=== PATIENT | female | born 1965 | race African-American/Black ===

== ENCOUNTER → 2020-05-31 | Outpatient (CLI) | payer OTHER ==
[2014-11-14 19:50] VITALS: BP 159/85
[~2020-05-31] MED LIST: ALPR0.5T6 PO; CIPR500T94 PO; HYDR-2155 PO; HYDR1TAB10 PO; LABE100T5 PO; METO10TA81 PO; METR500T PO; PANT40TA3 PO
[2020-05-31 13:15] LABS: ALBUMIN 3.6 g/dL (3.4-5.0); ALBUMIN/GLOBULIN RATIO 0.9 (1.0-1.7); CALCIUM 9.2 mg/dL (8.5-10.1); CREATININE 1.1 mg/dL (0.6-1.0); GFR 62.4; TOTAL BILIRUBIN 0.2 mg/dL (0.2-1.0); TOTAL PROTEIN 7.6 g/dL (6.4-8.2)
[2020-05-31 13:44] LABS: BASO % 0 % (0-3); EOS # 0.3 x10^3/uL (0.0-0.7); EOS % 3 % (0-3); HEMATOCRIT 36.7 % (36.0-47.0); LYMPH # 2.2 x10^3/uL (1.0-4.8); LYMPH % 27 % (24-48); MEAN CORPUSCULAR HEMOGLOBIN 29 pg (25-35); MEAN CORPUSCULAR HGB CONC 33 g/dL (31-37); MEAN CORPUSCULAR VOLUME 89 fL (79-100); MONO # 0.7 x10^3/uL (0.0-1.1); MONO % 8 % (0-9); NEUT # 5.2 x10^3uL (1.8-7.7); NEUT % 62 % (31-73); PLATELET COUNT 253 x10^3/uL (140-400); RED BLOOD COUNT 4.12 x10^6/uL (3.50-5.40); RED CELL DISTRIBUTION WIDTH 15.9 % (11.5-14.5); WHITE BLOOD COUNT 8.4 x10^3/uL (4.0-11.0)
[2020-05-31 14:04] LABS: BACTERIA,URINE MANY /HPF (0-FEW); BILIRUBIN,URINE NEG (NEG); CLARITY,URINE HAZY; COLOR,URINE YELLOW; GLUCOSE,URINE NEG (NEG); NITRITE,URINE NEG (NEG); SQUAMOUS EPITHELIAL CELL,UR MANY /LPF; UROBILINOGEN,URINE 0.2 mg/dL (0.2 mg/dL)
[2020-06-01 19:21] LABS: FREE T4 0.92 ng/dL (0.76-1.46); THYROID STIM HORMONE (TSH) 0.793 uIU/mL (0.358-3.740)
== END ==
LOC: LAB 12:06
PROVIDERS: ATTEND Family Medicine
DX: E03.9 Hypothyroidism, unspecified (principal); R35.1 Nocturia; R19.01 Right upper quadrant abdominal swelling, mass and lump; R09.02 Hypoxemia
CPT/HCPCS: 36415; 80053; 81001; 83690; 84439; 84443; 85025; 85379; 87086

== ENCOUNTER → 2020-06-16 | Outpatient (CLI) | payer OTHER ==
[2014-11-14 19:50] VITALS: BP 159/85
[~2020-06-16] MED LIST changes: +IOHEXOL 240 MG/ML 50ML VIAL. ONE; +IOHEXOL 240 MG/ML 50ML VIAL. PO ONE; +IOHEXOL 300 MG/ML 75 ML VIAL. IV ONE
--- NOTE | 2020-06-16 16:28 | RAD ---
CT scan of the abdomen and pelvis without and with contrast 06/16/2020 CLINICAL HISTORY: Right upper quadrant abdominal pain and swelling. TECHNIQUE: After the oral administration contrast only, contiguous, 3 mm axial sections were obtained through the abdomen and pelvis. After the intravenous administration of 75 cc of Omnipaque 300, cont iguous, 5 mm axial sections were obtained through the abdomen and pelvis. One or more of the following individualized dose reduction techniques were utilized for this study: 1. Automated exposure control. 2. Adjustment of the mA and/or kV according to patient size. 3. Use of iterative reconstruction technique. Findings: Comparison study is dated 08/25/2011. Images through the lung bases demonstrate minimal dependent subsegmental atelectasis bilaterally. On the unenhanced CT images through the abdomen and pelvis, no renal or ureteral calculus is seen. On the postcontrast images, the liver, spleen, pancreas, and kidneys are within normal limits. Fullne ss of both adrenal glands is seen, unchanged. Atherosclerotic calcification of the abdominal aorta and its branches is noted. The abdominal aorta t apers normally. Surgical clips are seen within the gallbladder fossa consistent with cholecystectomy. No free fluid or free air is seen within the abdomen. Air and stool are seen throughout the colon. T he appendix is well-visualized and is within normal limits. There is no evidence of bowel obstruction . Images through the pelvis demonstrate the urinary bladder to be contracted. A few scattered diverticu la are seen involving the sigmoid colon. No inflammatory changes are seen adjacent fat. No free fluid is seen. Calculations are seen within the pelvis consistent with phleboliths. Very mild S-shaped cur vature of the thoracolumbar spine is seen. Degenerative changes are seen involving lower thoracic and throughout the lumbar spine along with both hips. IMPRESSION: No acute abnormality is seen. Electronically signed by: Pablo Craven MD (06/16/2020 4:26 PM) [id number]
== END ==
LOC: CT 11:51
PROVIDERS: ATTEND Family Medicine
DX: K57.30 Diverticulosis of large intestine without perforation or abscess without bleeding (principal); I70.0 Atherosclerosis of aorta; M47.815 Spondylosis without myelopathy or radiculopathy, thoracolumbar region; M43.8X5 Other specified deforming dorsopathies, thoracolumbar region; R19.01 Right upper quadrant abdominal swelling, mass and lump; Z98.890 Other specified postprocedural states
CPT/HCPCS: 74178; Q9966; Q9967

== ENCOUNTER → 2020-07-21 | Outpatient (CLI) | payer OTHER ==
[2014-11-14 19:50] VITALS: BP 159/85
[~2020-07-21] MED LIST changes: -IOHEXOL 240 MG/ML 50ML VIAL. ONE; -IOHEXOL 240 MG/ML 50ML VIAL. PO ONE; -IOHEXOL 300 MG/ML 75 ML VIAL. IV ONE
--- NOTE | 2020-07-22 08:41 | RAD ---
XR ORBITS COMPLETE 4+ VIEWS History: Reason: TRAUMA TO RIGHT EYE / Spl. Instructions: / History: Pain Technique: 5 views of the orbits Comparison: None. Findings: Normal alignment. No definite fracture. No radiopaque foreign body. Impression: 1. No definite acute osseous abnormality. If persistent clinical concern, CT can better evaluate. Electronically signed by: Austyn Ulloa DO (07/22/2020 8:38 AM) [id number]
== END ==
LOC: RAD 12:16
PROVIDERS: ATTEND Registered Nurse
DX: S05.11XD Contusion of eyeball and orbital tissues, right eye, subsequent encounter (principal); X58.XXXD Exposure to other specified factors, subsequent encounter
CPT/HCPCS: 70200

== ENCOUNTER → 2020-07-21 | Outpatient (CLI) | payer OTHER ==
[2014-11-14 19:50] VITALS: BP 159/85
--- NOTE | 2020-07-21 15:20 | RAD ---
EXAM: NUCLEAR GASTRIC EMPTYING SCAN. HISTORY: Gastroparesis. COMPARISON: None. TECHNIQUE: Serial static images were obtained over the stomach following oral administration of 2 mCi of 99m-Tc sulfur colloid in a solid meal. FINDINGS: The stomach appears normal in contour. There is clearance of activity into the small bowel. The remaining fraction of gastric activity is as follows. 1 hour 71% (normal range 34.8-91%) 2 hour 47% (normal range 2.7-60%) 3 hour 3% (normal range 0.5-28%) 4 hour 1% (normal range 0-10%) IMPRESSION: 1. Normal gastric emptying. Electronically signed by: Chris Poole MD (07/21/2020 3:17 PM) [facility]
== END ==
LOC: NM 08:11
PROVIDERS: ATTEND Internal Medicine Gastroenterology
DX: K31.84 Gastroparesis (principal)
CPT/HCPCS: 78264; A9541

== ENCOUNTER 2020-12-10 07:57 | Emergency (ER) | payer OTHER ==
[~2020-12-10] VITALS: Ht 160 cm; Wt 115.0 kg
--- NOTE | 2020-12-10 08:26 | PHYS DOC ---
Past History Past Medical History: Angina, Asthma, Hypertension, Other Additional Past Medical Histor: gastroparesis, narcolepsy, chronic back pain Past Surgical History: Cholecystectomy, , Other Additional Past Surgical Histo: pt reports "5 lb tumor removed." Smoking: Cigarettes Alcohol Use: Occasionally Drug Use: None General Adult EDM: Chief Complaint: ABDOMINAL PAIN HPI: HPI: 55-year-old female presents with right upper quadrant pain. The patient has been having intermittent pain in this area for several years. She moves her right arm a certain way and she gets a severe cramping pain up under her right breast. The only thing that makes it better is to put pressure on that area. She has discussed it with her primary care physician and no one has been able to come up with a reason for it. Patient is very concerned about it being a cancerous tumor. She does not have a particular reason for that she is just worried about it. She denies fever or chills. She does not have any nausea, vomiting, diarrhea or constipation. She presents today because she has been having pain frequently for the last 2 days in this area. Review of Systems: Review of Systems: Constitutional: Denies fever or chills Eyes: Denies change in visual acuity HENT: Denies nasal congestion or sore throat Respiratory: Denies cough or shortness of breath Cardiovascular: Denies chest pain or edema GI: Right upper quadrant abdominal pain. Denies nausea, vomiting, bloody stools or diarrhea : Denies dysuria Musculoskeletal: Denies back pain or joint pain Integument: Denies rash Neurologic: Denies headache, focal weakness or sensory changes Endocrine: Denies polyuria or polydipsia Lymphatic: Denies swollen glands Psychiatric: Denies depression or anxiety Allergies: Allergies: Allergies Coded Allergies Type Severity Reaction Last Updated Verified No Known Drug Allergies 12/10/20 No Physical Exam: PE: Constitutional: Well developed, well nourished, morbidly obese, no acute distress, non-toxic appearance. [] HENT: Normocephalic, atraumatic, bilateral external ears normal, oropharynx moist, no oral exudates, nose normal. [] Eyes: PERRLA, EOMI, conjunctiva normal, no discharge. [] Neck: Normal range of motion, no tenderness, supple, no stridor. [] Cardiovascular: Heart rate regular rhythm, no murmur [] Lungs & Thorax: Bilateral breath sounds clear to auscultation [] Abdomen: Bowel sounds normal, soft, no tenderness, no masses, no pulsatile masses. [] Skin: Warm, dry, no erythema, no rash. [] Back: No tenderness, no CVA tenderness. [] Extremities: No tenderness, no cyanosis, no clubbing, ROM intact, no edema. [] Neurologic: Alert and oriented X 3, normal motor function, normal sensory function, no focal deficits noted. [] Psychologic: Affect normal, judgement normal, mood anxious [] Current Patient Data: Vital Signs: Vital Signs Date Time Temp Pulse Resp B/P (MAP) Pulse Ox O2 Delivery O2 Flow Rate FiO2 12/10/20 08:00 98.1 97 17 148/95 98 Room Air EKG: EKG: [] Radiology/Procedures: Radiology/Procedures: [] Impressions: CT ABDOMEN+PELVIS W History: Right upper quadrant pain Comparison: CT abdomen and pelvis 06/16/2020. Technique: CT of the abdomen and pelvis with intravenous contrast. Findings: Trace right pleural effusion. No significant airspace consolidation. Redemonstrated approximately 5 mm right hepatic cyst. The liver is otherwise unremarkable. Status post cholecystectomy with mild intrahepatic biliary ductal dilatation, similar to comparison. The common bile duct measures approximately 7 mm diameter. The pancreas, spleen, and kidneys are normal. There is bilateral adrenal thickening similar to comparison. Normal bladder. Postsurgical changes from hysterectomy. No pelvic masses. No focal gastric abnormality. Small bowel is within normal limits. The appendix is visualized and normal. Minimal sigmoid diverticulosis. No evidence of diverticulitis. No free intra-abdominal air or fluid. Minimal aortoiliac atherosclerotic calcification. No aneurysm. Small fat-containing umbilical hernia. Mild degenerative changes at the lower lumbar facets. Mild disc space narrowing L3-L4. Impression: 1. No acute findings in the abdomen and pelvis. 2. Trace right pleural effusion of uncertain etiology/significance. ------ Exposure: One or more of the following individualized dose reduction techniques were utilized for this examination: 1. Automated exposure control 2. Adjustment of the mA and/or kV according to patient size 3. Use of iterative reconstruction technique. Electronically signed by: Christian Carrillo MD (12/10/2020 9:14 AM) [id number] DICTATED AND SIGNED BY: CHRISTIAN CARRILLO MD DATE: 12/10/20901 CC: BERTHA GOMEZ DO; NURIS COLLADO DO ~MTH0 0 Heart Score: C/O Chest Pain: N/A Risk Factors: Risk Factors: DM, Current or recent (<one month) smoker, HTN, HLP, family history of CAD, obesity. Risk Scores: Score 0 - 3: 2.5% MACE over next 6 weeks - Discharge Home Score 4 - 6: 20.3% MACE over next 6 weeks - Admit for Clinical Observation Score 7 - 10: 72.7% MACE over next 6 weeks - Early Invasive Strategies Course & Med Decision Making: Course & Med Decision Making Pertinent Labs and Imaging studies reviewed. (See chart for details) The patient's labs are unremarkable. Her CT of the abdomen pelvis does not show any acute findings. See official read for details. I suspect the patient may have been intermittently displacing the rib. Based on the description of the episodes and what causes the pain to happen, this is 1 potential diagnosis. Regardless, it does appear to be musculoskeletal and not intraabdominal. The patient is reassured by these results. She is stable for discharge at this time. [] Dragon Disclaimer: Dragon Disclaimer: This electronic medical record was generated, in whole or in part, using a voice recognition dictation system. Departure Departure: Impression: Primary Impression: Right upper quadrant abdominal pain Disposition: HOME / SELF CARE / HOMELESS Condition: STABLE Referrals: NURIS COLLADO DO (PCP) Patient Instructions: Abdominal Pain (Nonspecific) BERTHA GOMEZ DO Dec 10, 2020 08:26
[2020-12-10] MEDS ORDERED: IOHEXOL 300 MG/ML 75 ML VIAL. IV ONE (08:30)
[2020-12-10] MEDS ORDERED: CONTRAST GIVEN. MC PRN (08:45)
[2020-12-10 08:47] LABS: BASO % 1 % (0-3); EOS # 0.3 x10^3/uL (0.0-0.7); EOS % 5 % (0-3); HEMATOCRIT 38.7 % (36.0-47.0); HEMOGLOBIN 12.9 g/dL (12.0-15.5); LYMPH # 1.7 x10^3/uL (1.0-4.8); LYMPH % 24 % (24-48); MEAN CORPUSCULAR HEMOGLOBIN 30 pg (25-35); MEAN CORPUSCULAR HGB CONC 33 g/dL (31-37); MEAN CORPUSCULAR VOLUME 90 fL (79-100); MONO # 0.4 x10^3/uL (0.0-1.1); MONO % 6 % (0-9); NEUT # 4.4 x10^3uL (1.8-7.7); NEUT % 64 % (31-73); PLATELET COUNT 238 x10^3/uL (140-400); RED BLOOD COUNT 4.29 x10^6/uL (3.50-5.40); RED CELL DISTRIBUTION WIDTH 15.1 % (11.5-14.5); WHITE BLOOD COUNT 6.9 x10^3/uL (4.0-11.0)
[2020-12-10 08:53] LABS: CALCIUM 8.9 mg/dL (8.5-10.1); GFR 69.7; POTASSIUM 3.6 mmol/L (3.5-5.1)
[2020-12-10 09:01] LABS: ALBUMIN 3.6 g/dL (3.4-5.0); ALBUMIN/GLOBULIN RATIO 0.9 (1.0-1.7); TOTAL BILIRUBIN 0.3 mg/dL (0.2-1.0); TOTAL PROTEIN 7.4 g/dL (6.4-8.2)
--- NOTE | 2020-12-10 09:16 | RAD ---
CT ABDOMEN+PELVIS W History: Right upper quadrant pain Comparison: CT abdomen and pelvis 06/16/2020. Technique: CT of the abdomen and pelvis with intravenous contrast. Findings: Trace right pleural effusion. No significant airspace consolidation. Redemonstrated approximately 5 mm right hepatic cyst. The liver is otherwise unremarkable. Status pos t cholecystectomy with mild intrahepatic biliary ductal dilatation, similar to comparison. The common bile duct measures approximately 7 mm diameter. The pancreas, spleen, and kidneys are normal. There is bilateral adrenal thickening similar to comparison. Normal bladder. Postsurgical changes from hyst erectomy. No pelvic masses. No focal gastric abnormality. Small bowel is within normal limits. The appendix is visualized and nor mal. Minimal sigmoid diverticulosis. No evidence of diverticulitis. No free intra-abdominal air or fl uid. Minimal aortoiliac atherosclerotic calcification. No aneurysm. Small fat-containing umbilical he rnia. Mild degenerative changes at the lower lumbar facets. Mild disc space narrowing L3-L4. Impression: 1. No acute findings in the abdomen and pelvis. 2. Trace right pleural effusion of uncertain etiology/significance. ------ Exposure: One or more of the following individualized dose reduction techniques were utilized for thi s examination: 1. Automated exposure control 2. Adjustment of the mA and/or kV according to patient size 3. Use of iterative reconstruction technique. Electronically signed by: Christian Carrillo MD (12/10/2020 9:14 AM) [id number]
[2020-12-10 09:47] LABS: BILIRUBIN,URINE NEG (NEG); CLARITY,URINE CLEAR; COLOR,URINE YELLOW; GLUCOSE,URINE NEG (NEG); NITRITE,URINE NEG (NEG); UROBILINOGEN,URINE 0.2 mg/dL (0.2 mg/dL)
[2020-12-10 09:50] LABS: BACTERIA,URINE FEW /HPF (0-FEW); RBC,URINE 0 /HPF (0-2); SQUAMOUS EPITHELIAL CELL,UR FEW /LPF; WBC,URINE OCC /HPF (0-4)
[2020-12-10 10:19] VITALS: BP 128/87
== END 2020-12-10 10:16 | disposition home or self-care (01) ==
LOC: ER 07:57
DX: R10.11 Right upper quadrant pain (principal)
CPT/HCPCS: 36415; 74177; 80053; 81001; 85025; 99285; Q9967

== ENCOUNTER 2021-05-30 11:19 | Emergency (ER) | payer OTHER ==
[~2021-05-30] VITALS: Ht 160 cm; Wt 115.0 kg
[2021-05-30 11:32] VITALS: BP 138/81
[2021-05-30] MEDS ORDERED: DEXAMETHASONE SOD PHOS 10 MG/ML VIAL. IM ONE (12:00)
[2021-05-30] MEDS ORDERED: IPRATRPIUM/ALBUTEROL 0.5/2.5MG 3 ML NEBU. NEB ONE (12:00)
--- NOTE | 2021-05-30 12:14 | RAD ---
EXAM: Chest, single view. HISTORY: Shortness of breath. Wheezing. COMPARISON: None. FINDINGS: A frontal view of the chest is obtained. There is no infiltrate, pleural effusion or pneumo thorax. The heart is normal in size for portable technique. IMPRESSION: No acute pulmonary finding. Electronically signed by: Rohini Bennett MD (05/30/2021 12:12 PM) [id number]
--- NOTE | 2021-05-30 12:25 | PHYS DOC ---
Past History Past Medical History: Angina, Asthma, Hypertension, Other Additional Past Medical Histor: gastroparesis, narcolepsy, chronic back pain Past Surgical History: Cholecystectomy, , Other Additional Past Surgical Histo: pt reports "5 lb tumor removed." Smoking: Cigarettes Alcohol Use: None Drug Use: None General Adult EDM: Chief Complaint: SHORTNESS OF BREATH HPI: HPI: Patient is a 56 year old female with history of asthma who presents with increased shortness of breath and wheezing. Patient was seen in urgent care on Sunday. At that time, she was prescribed antibiotics and prednisone. She states she did not feel well enough to go medicinal plant picker her prescriptions. Patient presents today with continued shortness of breath and wheezing. She denies all other complaints. Review of Systems: Review of Systems: Constitutional: Denies fever, chills or generalized weakness Eyes: Denies change in visual acuity, visual field deficits or discharge HENT: Denies ear pain, nasal congestion or sore throat Respiratory: See HPI Cardiovascular: Denies chest pain, palpitations or edema GI: Denies abdominal pain, nausea, vomiting, bloody stools or diarrhea : Denies dysuria or hematuria Musculoskeletal: Denies back pain or joint pain Integument: Denies rash or other skin lesion Neurologic: Denies headache, focal weakness or sensory changes Current Medications: Current Meds: Current Medications Medications (Trade) Dose Ordered Sig/Kelley Start Time Stop Time Status Last Admin Dose Admin Albuterol/ Ipratropium (Duoneb) 3 ml 1X ONCE 05/30/21 12:00 05/30/21 12:06 DC 05/30/21 11:59 3 ML Dexamethasone Sodium Phosphate (Decadron) 12 mg 1X ONCE 05/30/21 12:00 05/30/21 12:06 DC 05/30/21 12:08 12 MG Allergies: Allergies: Allergies Coded Allergies Type Severity Reaction Last Updated Verified No Known Drug Allergies 12/10/20 No Physical Exam: PE: Constitutional: Obese, no acute distress, non-toxic appearance. HENT: Normocephalic, atraumatic, bilateral external ears normal, nose normal. Eyes: EOMI, conjunctiva normal, no discharge. Neck: Normal range of motion, no stridor. Cardiovascular: Heart rate regular rhythm, no obvious murmur. Lungs & Thorax: Bilateral breath sounds expiratory wheezing without rales or rhonchi. Skin: Warm, dry, no erythema, no rash, no cyanosis. Neurologic: Alert and oriented x4, no focal deficits noted. Current Patient Data: Vital Signs: Vital Signs Date Time Temp Pulse Resp B/P (MAP) Pulse Ox O2 Delivery O2 Flow Rate FiO2 05/30/21 12:01 98 Room Air 05/30/21 11:32 98.1 69 16 138/81 (100) Radiology/Procedures: Radiology/Procedures: PROCEDURE: CHEST AP ONLY EXAM: Chest, single view. HISTORY: Shortness of breath. Wheezing. COMPARISON: None. FINDINGS: A frontal view of the chest is obtained. There is no infiltrate, pleural effusion or pneumothorax. The heart is normal in size for portable technique. IMPRESSION: No acute pulmonary finding. Electronically signed by: Rohini Bennett MD (05/30/2021 12:12 PM) [id number] DICTATED AND SIGNED BY: ROHINI BENNETT MD Heart Score: C/O Chest Pain: No Course & Med Decision Making: Course & Med Decision Making Pertinent Labs and Imaging studies reviewed. (See chart for details) Patient is a 56-year-old female who with presentation consistent with asthma exacerbation. She was treated on Sunday, but did not medicinal plant picker medications. She will be treated today with IM dexamethasone and DuoNeb. Patient strongly advised to quit smoking and medicinal plant picker her prescriptions when she leaves the department today. After receiving breathing treatment, patient breath sounds improved. Negative chest x-ray findings discussed. Patient was given return precautions. She understands and is agreeable to discharge plan. Dragon Disclaimer: Dragkary Disclaimer: This electronic medical record was generated, in whole or in part, using a voice recognition dictation system. Departure Departure: Impression: Primary Impression: Asthma exacerbation, mild Disposition: HOME / SELF CARE / HOMELESS Condition: IMPROVED Referrals: NURIS COLLADO DO (PCP) Patient Instructions: Asthma Attacks, Prevention, Asthma, Adult, [id number] Additional Instructions: EMERGENCY DEPARTMENT GENERAL DISCHARGE INSTRUCTIONS Thank you for coming to [facility] (ED) today and trusting us with you care. We trust that you had a positive experience in our Emergency Department. If you wish to speak to the department management, you may call the director at [phone]. YOUR FOLLOW UP INSTRUCTIONS ARE FOLLOWS: 1. Follow up with your primary care doctor. If you do not have a primary doctor, please ask for a resource list of physicians or clinics that may be able to assist you with follow up care. 2. The emergency provider has interpreted your imaging studies, if any were ordered. The radiology intake specialist also reviewed them. If there is a change in the findings, you will be notified in 48 hours when at all possible. 3. If a lab test or culture has been done, your results will be reviewed and you will be notified if you need a change in treatment. 4. Follow instructions verbalized to you and refer to the printouts if needed. ADDITIONAL INSTRUCTIONS AND INFORMATION: 1. Your care today has been supervised by a physician who is specially trained in emergency care. Many problems require more than one evaluation for a complete diagnosis and treatment. We recommend that you schedule your follow up appointment as recommended to ensure complete treatment of you illness or injury. If you are unable to obtain follow up care and continue to have a problem, or if your condition worsens, we recommend that you return to the ED. 2. We are not able to safely determine your condition over the phone nor are we able to give sound medical advice over the phone. For these safety reasons, if you call for medical advice we will ask you to come to the ED for further evaluation. 3. If you have any questions regarding these discharge instructions please call the ED at [phone]. SAFETY INFORMATION: In the interest of safety, wellness, and injury prevention; we encourage you to wear your seat belt, if you smoke; quite smoking, and we encourage family to use a protective helmet for bicycling and other sporting events that present an increased risk for head injury. IF YOUR SYMPTOMS WORSEN OR NEW SYMPTOMS DEVELOP, OR YOU HAVE CONCERNS ABOUT YOUR CONDITION; OR IF YOUR CONDITION WORSENS WHILE YOU ARE WAITING FOR YOUR FOLLOW UP APPOINTMENT; EITHER CONTACT YOUR PRIMARY CARE DOCTOR, THE PHYSICIAN WHOSE NAME AND NUMBER YOU WERE GIVEN, OR RETURN TO THE ED IMMEDIATELY. ANDRZEJ ZAMBRANO May 30, 2021 12:25
== END 2021-05-30 12:33 | disposition home or self-care (01) ==
LOC: ER 11:19
DX: J45.901 Unspecified asthma with (acute) exacerbation (principal); I10 Essential (primary) hypertension; G89.29 Other chronic pain; F17.210 Nicotine dependence, cigarettes, uncomplicated
CPT/HCPCS: 71045; 94640; 96372; 99283; J1100

== ENCOUNTER → 2021-09-08 | Outpatient (CLI) | payer OTHER ==
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
== END ==
LOC: RAD 10:05
PROVIDERS: ATTEND Family Medicine
DX: M51.36 Other intervertebral disc degeneration, lumbar region (principal); M48.07 Spinal stenosis, lumbosacral region; M43.07 Spondylolysis, lumbosacral region
CPT/HCPCS: 72100

== ENCOUNTER 2021-09-14 08:34 | Emergency (ER) | payer OTHER ==
[~2021-09-14] VITALS: Ht 160 cm; Wt 115.0 kg
[2021-09-14] MEDS ORDERED: IPRATRPIUM/ALBUTEROL 0.5/2.5MG 3 ML NEBU. ONE (08:56)
[2021-09-14] MEDS ORDERED: methylPREDNISolone SOD SUCC PF 125 MG/2 ML VIAL. IV ONE (09:00)
[2021-09-14] MEDS ORDERED: IPRATRPIUM/ALBUTEROL 0.5/2.5MG 3 ML NEBU. NEB ONE (09:00)
--- NOTE | 2021-09-14 09:19 | PHYS DOC ---
Past History Past Medical History: Angina, Asthma, Hypertension, Other Additional Past Medical Histor: gastroparesis, narcolepsy, chronic back pain Past Surgical History: Cholecystectomy, , Other Additional Past Surgical Histo: pt reports "5 lb tumor removed." Smoking: Cigarettes Alcohol Use: None Drug Use: None General Adult EDM: Chief Complaint: SHORTNESS OF BREATH HPI: HPI: 56-year-old female presents with shortness of breath. Patient has a history of asthma. She tells me that for the last 2 to 3 weeks she has had more difficulty with her breathing. She has been on cefdinir previously, prednisone and oral treatment that she does finish yesterday, Symbicort daily, albuterol nebulizer 3 times a day. She states that she still just feels very short of breath. It is worse with activity. She denies any increased swelling, weight gain, chest pain. She admits that over the last 5 years she has had episodes of asthma like this about once a year. She has no cardiac history. Denies fever or chills. Review of Systems: Review of Systems: Constitutional: Denies fever or chills Eyes: Denies change in visual acuity HENT: Denies nasal congestion or sore throat Respiratory: Cough with shortness of breath Cardiovascular: Denies chest pain or edema GI: Denies abdominal pain, nausea, vomiting, bloody stools or diarrhea : Denies dysuria Musculoskeletal: Denies back pain or joint pain Integument: Denies rash Neurologic: Denies headache, focal weakness or sensory changes Endocrine: Denies polyuria or polydipsia Lymphatic: Denies swollen glands Psychiatric: Denies depression or anxiety Current Medications: Current Meds: Current Medications Medications (Trade) Dose Ordered Sig/Kelley Start Time Stop Time Status Last Admin Dose Admin Albuterol/ Ipratropium (Duoneb) 3 ml STK-MED ONCE 09/14/21 08:56 09/14/21 08:56 DC Allergies: Allergies: Allergies Coded Allergies Type Severity Reaction Last Updated Verified No Known Drug Allergies 12/10/20 No Physical Exam: PE: Constitutional: Well developed, well nourished, morbidly obese, no acute distress, non-toxic appearance. [] HENT: Normocephalic, atraumatic, bilateral external ears normal, oropharynx moist, no oral exudates, nose normal. [] Eyes: PERRLA, EOMI, conjunctiva normal, no discharge. [] Neck: Normal range of motion, no tenderness, supple, no stridor. [] Cardiovascular: Heart rate regular rhythm, no murmur [] Lungs & Thorax: Mild end expiratory wheezing anterior upper bilaterally [] Abdomen: Bowel sounds normal, soft, no tenderness, no masses, no pulsatile masses. [] Skin: Warm, dry, no erythema, no rash. [] Back: No tenderness, no CVA tenderness. [] Extremities: No tenderness, no cyanosis, no clubbing, ROM intact, no edema. [] Neurologic: Alert and oriented X 3, normal motor function, normal sensory function, no focal deficits noted. [] Psychologic: Affect normal, judgement normal, mood normal. [] Current Patient Data: Vital Signs: Vital Signs Date Time Temp Pulse Resp B/P (MAP) Pulse Ox O2 Delivery O2 Flow Rate FiO2 09/14/21 08:39 97.9 82 16 138/81 (100) 93 Room Air EKG: EKG: [] Radiology/Procedures: Radiology/Procedures: [] Heart Score: C/O Chest Pain: N/A Risk Factors: Risk Factors: DM, Current or recent (<one month) smoker, HTN, HLP, family history of CAD, obesity. Risk Scores: Score 0 - 3: 2.5% MACE over next 6 weeks - Discharge Home Score 4 - 6: 20.3% MACE over next 6 weeks - Admit for Clinical Observation Score 7 - 10: 72.7% MACE over next 6 weeks - Early Invasive Strategies Course & Med Decision Making: Course & Med Decision Making Pertinent Labs and Imaging studies reviewed. (See chart for details) The patient's EKG is unremarkable. Her labs are unremarkable. Her troponin is negative. Her chest x-ray is negative for acute findings. I gave the patient a DuoNeb treatment as well as 125 Solu-Medrol. She states feeling much better at this time. I will discharge her with a prescription for DuoNeb treatments as this may help in addition to her Symbicort and albuterol. Urinalysis is negative for infection. She is stable for discharge at this time. [] Dragon Disclaimer: Dragkary Disclaimer: This electronic medical record was generated, in whole or in part, using a voice recognition dictation system. Departure Departure: Impression: Primary Impression: Asthma exacerbation Disposition: HOME / SELF CARE / HOMELESS Condition: IMPROVED Referrals: NURIS COLLADO DO (PCP) Patient Instructions: Asthma, Adult, [id number] Scripts Ipratropium/Albuterol Sulfate (DUONEB 0.5-3(2.5) MG/3 ML) 3 Ml Ampul.neb 3 ML NEB TID PRN for SHORTNESS OF BREATH, #1 BOX Prov: BERTHA GOMEZ DO 09/14/21 BERTHA GOMEZ DO September 14, 2021 09:19
[2021-09-14 09:31] LABS: BASO # 0.1 x10^3/uL (0.0-0.2); BASO % 1 % (0-3); EOS # 0.2 x10^3/uL (0.0-0.7); EOS % 2 % (0-3); HEMATOCRIT 36.1 % (36.0-47.0); HEMOGLOBIN 12.1 g/dL (12.0-15.5); LYMPH # 3.1 x10^3/uL (1.0-4.8); LYMPH % 26 % (24-48); MEAN CORPUSCULAR HEMOGLOBIN 30 pg (25-35); MEAN CORPUSCULAR HGB CONC 34 g/dL (31-37); MEAN CORPUSCULAR VOLUME 90 fL (79-100); MONO # 0.7 x10^3/uL (0.0-1.1); MONO % 6 % (0-9); NEUT # 7.8 x10^3uL (1.8-7.7); NEUT % 65 % (31-73); PLATELET COUNT 239 x10^3/uL (140-400); RED BLOOD COUNT 4.01 x10^6/uL (3.50-5.40); RED CELL DISTRIBUTION WIDTH 14.9 % (11.5-14.5)
[2021-09-14 09:40] LABS: CALCIUM 9.5 mg/dL (8.5-10.1); GFR 69.4; POTASSIUM 3.8 mmol/L (3.5-5.1)
[2021-09-14 09:46] LABS: ALBUMIN 3.5 g/dL (3.4-5.0); ALBUMIN/GLOBULIN RATIO 1.1 (1.0-1.7); TOTAL BILIRUBIN 0.1 mg/dL (0.2-1.0); TOTAL PROTEIN 6.7 g/dL (6.4-8.2)
--- NOTE | 2021-09-14 10:02 | RAD ---
XR CHEST 1V History: Reason: SOB, ASTHMA / Spl. Instructions: / History: Comparison: May 30, 2021 Findings: No consolidation or pleural effusion. Normal heart size. No pneumothorax. Impression: 1. No acute cardiopulmonary process. Electronically signed by: Austyn Ulloa DO (09/14/2021 9:59 AM) [id number]
[2021-09-14] MEDS ORDERED: IPRA3AMP29 NEB (10:48)
[2021-09-14 11:37] LABS: BACTERIA,URINE MOD /HPF (0-FEW); CLARITY,URINE HAZY; COLOR,URINE YELLOW; GLUCOSE,URINE NEG (NEG); NITRITE,URINE NEG (NEG); SQUAMOUS EPITHELIAL CELL,UR MANY /LPF; UROBILINOGEN,URINE 0.2 mg/dL (0.2 mg/dL)
[2021-09-14 11:55] VITALS: BP 152/76
== END 2021-09-14 11:57 | disposition home or self-care (01) ==
LOC: ER 08:34
DX: J45.901 Unspecified asthma with (acute) exacerbation (principal); I10 Essential (primary) hypertension; G89.29 Other chronic pain; F17.210 Nicotine dependence, cigarettes, uncomplicated; Z90.49 Acquired absence of other specified parts of digestive tract; Z98.890 Other specified postprocedural states
CPT/HCPCS: 36415; 71045; 80053; 81001; 84484; 85025; 87086; 93005; 94640; 96374; 99285; J2930